=== PATIENT | male | born 1945 | race Caucasian/White ===

== ENCOUNTER → 2019-11-14 | Outpatient (CLI) | payer SELFPAY | PROVIDERS: Family Provider Physician Assistant Medical; Visit Provider Internal Medicine Medical Oncology | DX: C91.10 Chronic lymphocytic leukemia of B-cell type not having achieved remission (principal); K21.9 Gastro-esophageal reflux disease without esophagitis; M19.90 Unspecified osteoarthritis, unspecified site; N40.0 Benign prostatic hyperplasia without lower urinary tract symptoms; Z80.42 Family history of malignant neoplasm of prostate; Z79.899 Other long term (current) drug therapy | CPT/HCPCS: 99214 ==

== ENCOUNTER 2020-05-14 10:12 | Outpatient (CLI) | payer MEDICARE, OTHER, SELFPAY ==
--- NOTE | 2020-05-17 18:36 | ONC FU_ITS ---
Dr. Anthony Patient Follow-Up Note Patient: Angeles Ochoa Unit #: [id number]: 1945 Dicatated By: Claude Anthony M.D.Date of Visit:May 14, 2020 Onc Med Follow-up/Prog Note Chief Complaint: Chronic lymphocytic leukemia. History of Present Illness: This is a 74 year-old man with chronic lymphocytic leukemia, Grey stage III. The leukemia was initially diagnosed by peripheral blood flow cytometry in 2007. At that time he appeared to have early stage disease, and initially he was just monitored with observation. He ultimately did show evidence of significant disease progression with increasing lymphocytosis, peripheral lymphadenopathy, and development of mild anemia. In April 2012 he started treatment with bendamustine/Rituxan. As of July 2012 he had completed four cycles of treatment. Following the fourth cycle, he developed fairly generalized hives. The eruption involved the face and extremities with sparing of the trunk. It resolved following treatment with a Medrol dose pack. He did have a good clinical response to the chemotherapy, and he was subsequently followed on observation. He had been seen by Pilar Ibarra in January 2014 after he developed pain in the low back which radiated into the right leg. It had started abruptly after he had picked up a log and then twisted around at the waist. He was evaluated with MRI which showed a posterior central disc protrusion at L4-L5 causing mild central thecal sac stenosis. There was also a mild disc bulge at L2-L3. The most significant finding on that study was the presence of severe retroperitoneal lymphadenopathy. A subsequent CT of the abdomen/pelvis did show widespread mesenteric and retroperitoneal adenopathy with numerous nodes exceeding 1 cm. There were large soft tissue densities adjacent to the pancreas which were also compatible with adenopathy. The largest measured 7.9 cm x 5.6 cm and was located posterior to the duodenum adjacent to the head of the pancreas. Also noted was a 4.2 cm node just cephalad, adjacent to the head and body of the pancreas, and another just lateral to it measuring 3.4 cm. At that point he was referred to [facility] for further evaluation, as I did feel that a lymph node biopsy was indicated, and there was no peripheral adenopathy accessible for biopsy. He was seen there by Dr. Mariya Fontaine. He underwent CT-guided retroperitoneal lymph node biopsy. 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 He started second line therapy with ibrutinib in March 2014. Initially he had tolerated it well at the standard dosage of 420 mg daily, and he had a very good clinical response. On his followup visit in October 2016 he had reported increasing fatigue and weight gain, and his had reported that he was having some mild cognitive dysfunction. There had been no evidence of disease progression, and at that point I had recommended decreasing the ibrutinib to 280 mg daily. His other medical illnesses include GERD, benign prostatic hypertrophy, and degenerative arthritis. He also has a history of diverticulitis. He underwent TURIS in January 2015. He smoked in the past, but quit more than 30 years ago. Family history is significant for father having of prostate cancer. A younger brother has been treated for prostate cancer. INTERIM HISTORY: He has continued ibrutinib at 280 mg daily, thus far with no evidence of disease progression. He is seen for a scheduled visit. He has been feeling good generally. He says he is scheduled to have cataract surgery tomorrow. His energy has been good and he has normal activity. Appetite also is good. He has no fever or night sweats. He has no shortness of breath, cough, or chest pain. He has no GI or complaints. He has joint pain, mainly in the shoulders. He does not complain of headache or dizziness. He has no focal neurologic symptoms. Medications: Acyclovir 1 (400 mg) Tablet Oral b.i.d., Bactrim DS (800-160 mg) Tablet Oral Take as Directed, Cetirizine HCl 1 (10 mg) Tablet Oral daily, Famotidine 1 (20 mg) Tablet Oral daily, Imbruvica 1 Capsule (of 280 mg) Oral daily, Lisinopril 1 (10 mg) Tablet Oral daily, Meloxicam 1 Tablet (of 15 mg) Oral daily, Mucinex 1 Tablet Tablet SR 12 HR Oral daily, Tylenol 2 (325 mg) Tablet Oral q 4 hours PRN Allergies: No Known Allergies. Review of Systems: Constitutional - He has good energy and he has normal activity. Appetite is good. He has lost weight. No fever, night sweats, or hot flashes. ECOG score is 0, Eyes - He is having cataract surgery tomorrow, ENMT - No sinus congestion/drainage. No mouth sores. No sore throat or difficulty swallowing, Hematologic/Lymphatic - No abnormal bruising or bleeding, Respiratory - No shortness of breath. No cough. No pleuritic pain or hemoptysis, Cardiovascular - No angina pain. No palpitations, Gastrointestinal - No nausea or vomiting. No heartburn or acid reflux. No diarrhea or constipation. No blood in the stool or black stools, Genitourinary (M) - No dysuria or hematuria. No urinary frequency. No urgency or incontinence, Musculoskeletal - He has joint pain, mainly in the shoulders, Integumentary - No skin rash, Neurologic - No headache or dizziness. No numbness or tingling. No other focal neurologic symptoms, Psychiatric - No anxiety or depression. No insomnia. Vital Signs: Performed on May 14, 2020 09:00 Height - 69.00 in Weight - 214 lbs (LOW) BSA - 2.13 sq.m BMI - 31.60 (HIGH) Temperature - 98.5 F Pulse - 51 /min (LOW) Respiration - 16 /min BP - 150/76 mm(hg) (HIGH) O2 Sat - 99 % Pain - 0 Physical Examination: Constitutional - He looks good generally, Eyes - Sclerae nonicteric. Conjunctivae clear, ENMT - There are no lesions noted in the oral cavity, Hematologic/Lymphatic - No cervical, clavicular, or axillary adenopathy, Respiratory - Lungs are clear with good air movement bilaterally, Cardiovascular - Heart rhythm is regular. There is no murmur, gallop, or rub noted, Abdomen - Soft. Liver and spleen are not enlarged. There is no abdominal mass or ascites noted and there is no inguinal adenopathy, Extremities - No edema. There is extensive purpura on both arms, Neurologic - No focal neurologic deficits noted. Lab/Imaging: Test performed on May 02, 2020 11:04 Glucose 100 mg/dL LDH, Total 174 IU/L BUN 20 mg/dL Creatinine 0.86 mg/dL Cr Clearance (Est) 106.43 mL/min Sodium 137 mmol/L Potassium 4.4 mmol/L Chloride 106 mmol/L CO2 23 mmol/L Calcium 9.8 mg/dL Protein, Total 6.5 g/dL Albumin 4.4 g/dL Bilirubin, Total 0.8 mg/dL Alkaline Phosphatase 93 IU/L AST (SGOT) 19 IU/L ALT (SGPT) 24 IU/L WBC 6.2 10^9/L RBC 4.42 10^12/L HGB 13.7 g/dL HCT 40.4 % MCV 91.4 fl MCH 31.0 pg MCHC 33.9 g/dL RDW 12.9 % Platelet Count 152 10^9/L MPV 10.8 fL Neutrophils (Gran) 3.49 10^9/L Lymphocytes 1.77 10^9/L Monocytes 0.80 10^9/L Eosinophils 0.05 10^9/L Basophils 0.06 10^9/L Manual Lymphocytes 29 % Manual Monocytes 13 % Manual Eosinophils 1 % Manual Basophils 1 % PSA 0.6 ng/mL Impression: 1. Patient with chronic lymphocytic leukemia, diagnosed in 2007 and initially managed with observation. 2. He had started treatment in April 2012 because of increasing lymphocytosis in association with peripheral lymphadenopathy and mild anemia. He appeared to have a good clinical response to initial treatment with 4 cycles bendamustine/Rituxan, which he completed in July 2012. The treatment was complicated by a skin eruption which did appear consistent with hives. 3. He had evidence of disease progression with significant adenopathy by CT scan in January 2014, mainly in the area of the joslyn hepatis and pancreas. 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 He started second line therapy with ibrutinib in March 2014 at the standard dosage of 420 mg daily. He had a good response by clinical evaluation and by followup CT scan. 4. As of October 2016 he had reported increased fatigue and weight gain, and he also had mild cognitive dysfunction. There was no indication of disease progression. His ibrutinib dosage at that point was reduced to 280 mg daily. His other medical illnesses include: 5. GERD. 6. Degenerative arthritis. 7. Benign prostatic hypertrophy. 8. He has a significant family history of prostate cancer. He had a very good clinical response to the ibrutinib. He had developed some mild cognitive changes on the ibrutinib and he also reported some musculoskeletal pain, which I had assumed to be treatment related. He has tolerated it better since reducing the dosage to 280 mg daily, overall, he appears to be doing well clinically. Thus far there is been no evidence of progression of the CLL. Plan: He will continue ibrutinib at 280 mg daily. He will have a repeat CBC in 3 months and I will see him again in 6 months. Signed By: Claude Anthony M.D. <<Signature on File>>
== END 2020-05-14 10:13 | disposition home or self-care (01) ==
LOC: ONCMED 10:12
PROVIDERS: PCP Physician Assistant Medical; Visit Provider Internal Medicine Medical Oncology
DX: C91.10 Chronic lymphocytic leukemia of B-cell type not having achieved remission (principal); K21.9 Gastro-esophageal reflux disease without esophagitis; M19.90 Unspecified osteoarthritis, unspecified site; N40.0 Benign prostatic hyperplasia without lower urinary tract symptoms; Z80.42 Family history of malignant neoplasm of prostate; Z79.899 Other long term (current) drug therapy
CPT/HCPCS: 99214

== ENCOUNTER 2020-11-12 12:12 | Outpatient (CLI) | payer MEDICARE, OTHER, SELFPAY ==
--- NOTE | 2020-11-13 12:25 | ONC FU_ITS ---
Dr. Anthony Patient Follow-Up Note Patient: Angeles Ochoa Unit #: [id number]: [id number] Dicatated By: Claude Anthony M.D.Date of Visit:Nov 12, 2020 Onc Med Follow-up/Prog Note Chief Complaint: Chronic lymphocytic leukemia. History of Present Illness: This is a 75 year-old man with chronic lymphocytic leukemia, Grey stage III. The leukemia was initially diagnosed by peripheral blood flow cytometry in 2007. At that time he appeared to have early stage disease, and initially he was just monitored with observation. He ultimately did show evidence of significant disease progression with increasing lymphocytosis, peripheral lymphadenopathy, and development of mild anemia. In April 2012 he started treatment with bendamustine/Rituxan. As of July 2012 he had completed four cycles of treatment. Following the fourth cycle, he developed fairly generalized hives. The eruption involved the face and extremities with sparing of the trunk. It resolved following treatment with a Medrol dose pack. He did have a good clinical response to the chemotherapy, and he was subsequently followed on observation. He had been seen by Pilar Ibarra in January 2014 after he developed pain in the low back which radiated into the right leg. It had started abruptly after he had picked up a log and then twisted around at the waist. He was evaluated with MRI which showed a posterior central disc protrusion at L4-L5 causing mild central thecal sac stenosis. There was also a mild disc bulge at L2-L3. The most significant finding on that study was the presence of severe retroperitoneal lymphadenopathy. A subsequent CT of the abdomen/pelvis did show widespread mesenteric and retroperitoneal adenopathy with numerous nodes exceeding 1 cm. There were large soft tissue densities adjacent to the pancreas which were also compatible with adenopathy. The largest measured 7.9 cm x 5.6 cm and was located posterior to the duodenum adjacent to the head of the pancreas. Also noted was a 4.2 cm node just cephalad, adjacent to the head and body of the pancreas, and another just lateral to it measuring 3.4 cm. At that point he was referred to [facility] for further evaluation, as I did feel that a lymph node biopsy was indicated, and there was no peripheral adenopathy accessible for biopsy. He was seen there by Dr. Mariya Fontaine. He underwent CT-guided retroperitoneal lymph node biopsy. 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 He started second line therapy with ibrutinib in March 2014. Initially he had tolerated it well at the standard dosage of 420 mg daily, and he had a very good clinical response. On his followup visit in October 2016 he had reported increasing fatigue and weight gain, and his had reported that he was having some mild cognitive dysfunction. There had been no evidence of disease progression, and at that point I had recommended decreasing the ibrutinib to 280 mg daily. He has since then continued ibrutinib at 280 mg daily, thus far with no evidence of disease progression. His other medical illnesses include GERD, benign prostatic hypertrophy, and degenerative arthritis. He also has a history of diverticulitis. He underwent TURIS in January 2015. He smoked in the past, but quit more than 30 years ago. Family history is significant for father having of prostate cancer. A younger brother has been treated for prostate cancer. INTERIM HISTORY: He is seen for a scheduled visit. He has been feeling good generally. He has good energy and activity tolerance. ECOG score is 0. His appetite is good and his weight is stable. He has no fever or night sweats. He has a little shortness of breath with activity. He does not complain of cough and he has not been having chest pain. He has no GI or complaints. He has some soreness, mainly in the shoulders. It has not been getting any worse. He does not complain of headache or dizziness, and he has no focal neurologic symptoms. He does have easy bruising. He has no other bleeding manifestations. Medications: Acyclovir 1 (400 mg) Tablet Oral b.i.d., Bactrim DS (800-160 mg) Tablet Oral Take as Directed, Cetirizine HCl 1 (10 mg) Tablet Oral daily, Famotidine 1 (20 mg) Tablet Oral daily, Imbruvica 1 Capsule (of 280 mg) Oral daily, Lisinopril 1 (10 mg) Tablet Oral daily, Meloxicam 1 Tablet (of 15 mg) Oral daily, Mucinex 1 Tablet Tablet SR 12 HR Oral daily, Tylenol 2 (325 mg) Tablet Oral q 4 hours PRN Allergies: No Known Allergies. Review of Systems: Constitutional - He has been feeling good generally. His energy is good. He has normal activity. His appetite is good and his weight is stable. No fever or night sweats. ECOG score is 0, ENMT - No sinus congestion/drainage. No mouth sores. No sore throat or difficulty swallowing, Hematologic/Lymphatic - He bruises easily, Respiratory - He has occasional shortness of breath with exertion. No cough. No pleuritic pain or hemoptysis, Cardiovascular - No angina pain. No palpitations, Gastrointestinal - No nausea or vomiting. No heartburn or acid reflux. No diarrhea or constipation. No blood in the stool or black stools, Genitourinary (M) - No dysuria or hematuria. No urinary frequency. No urgency or incontinence, Musculoskeletal - He has occasional joint aches, mainly in his shoulders, Integumentary - No skin complications, Neurologic - No headache or dizziness. No numbness or tingling. No other focal neurologic symptoms, Psychiatric - No anxiety or depression. No insomnia. Vital Signs: Performed on Nov 12, 2020 09:10 Height - 69.00 in Weight - 220 lbs (HIGH) BSA - 2.15 sq.m BMI - 32.49 (HIGH) Temperature - 98.6 F Pulse - 75 /min Respiration - 16 /min BP - 140/76 mm(hg) O2 Sat - 95 % (LOW) Pain - 0 Physical Examination: Constitutional - He looks good generally, Eyes - Sclerae nonicteric. Conjunctivae clear, ENMT - There are no lesions noted in the oral cavity, Hematologic/Lymphatic - No cervical, clavicular, or axillary adenopathy, Respiratory - Lungs are clear with good air movement bilaterally, Cardiovascular - Heart rhythm is regular. There is no murmur, gallop, or rub noted, Abdomen - Soft. Liver and spleen are not enlarged. There is no abdominal mass or ascites noted and there is no inguinal adenopathy, Extremities - No edema. He has some chronic purpura, Neurologic - No focal neurologic deficits noted. Lab/Imaging: Test performed on Nov 08, 2020 10:02 Glucose 121 mg/dL LDH, Total 157 IU/L BUN 22 mg/dL Creatinine 0.97 mg/dL Cr Clearance (Est) 87.56 mL/min Sodium 140 mmol/L Potassium 4.1 mmol/L Chloride 105 mmol/L CO2 27 mmol/L Calcium 9.8 mg/dL Protein, Total 6.8 g/dL Albumin 4.4 g/dL Bilirubin, Total 0.4 mg/dL Alkaline Phosphatase 114 IU/L AST (SGOT) 17 IU/L ALT (SGPT) 21 IU/L WBC 7.1 10^9/L RBC 4.60 10^12/L HGB 13.9 g/dL HCT 43.1 % MCV 93.7 fl MCH 30.2 pg MCHC 32.3 g/dL RDW 12.8 % Platelet Count 165 10^9/L MPV 10.3 fL Neutrophils (Gran) 3.99 10^9/L Lymphocytes 2.12 10^9/L Monocytes 0.87 10^9/L Eosinophils 0.06 10^9/L Basophils 0.05 10^9/L Manual Lymphocytes 30 % Manual Monocytes 12 % Manual Eosinophils 1 % Manual Basophils 1 % Impression: 1. Patient with chronic lymphocytic leukemia, diagnosed in 2007 and initially managed with observation. 2. He had started treatment in April 2012 because of increasing lymphocytosis in association with peripheral lymphadenopathy and mild anemia. He appeared to have a good clinical response to initial treatment with 4 cycles bendamustine/Rituxan, which he completed in July 2012. The treatment was complicated by a skin eruption which did appear consistent with hives. 3. He had evidence of disease progression with significant adenopathy by CT scan in January 2014, mainly in the area of the joslyn hepatis and pancreas. 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 He started second line therapy with ibrutinib in March 2014 at the standard dosage of 420 mg daily. He had a good response by clinical evaluation and by followup CT scan. 4. As of October 2016 he had reported increased fatigue and weight gain, and he also had mild cognitive dysfunction. There was no indication of disease progression. His ibrutinib dosage at that point was reduced to 280 mg daily. His other medical illnesses include: 5. GERD. 6. Degenerative arthritis. 7. Benign prostatic hypertrophy. 8. He has a significant family history of prostate cancer. He had a very good clinical response to the ibrutinib. He had developed some mild cognitive changes on the ibrutinib and he also reported some musculoskeletal pain, which I had assumed to be treatment related. He has tolerated it better since reducing the dosage to 280 mg daily. Overall, he has been doing well clinically. Thus far there has been no evidence of progression of the CLL. Plan: He will continue ibrutinib at 280 mg daily. He will have a repeat CBC in 3 months and I will see him again in 6 months. Signed By: Claude Anthony M.D. <<Signature on File>>
== END 2020-11-12 12:13 | disposition home or self-care (01) ==
LOC: ONCMED 12:13
PROVIDERS: PCP Physician Assistant Medical; Visit Provider Internal Medicine Medical Oncology
DX: C91.10 Chronic lymphocytic leukemia of B-cell type not having achieved remission (principal); G47.33 Obstructive sleep apnea (adult) (pediatric); K21.9 Gastro-esophageal reflux disease without esophagitis; N40.0 Benign prostatic hyperplasia without lower urinary tract symptoms; M19.90 Unspecified osteoarthritis, unspecified site; Z80.42 Family history of malignant neoplasm of prostate; Z79.899 Other long term (current) drug therapy
CPT/HCPCS: 99214; G0463

== ENCOUNTER 2021-05-13 09:00 | Outpatient (CLI) | payer MEDICARE, OTHER, SELFPAY ==
--- NOTE | 2021-05-16 07:03 | ONC FU_ITS ---
Dr. Anthony Patient Follow-Up Note Patient: Angeles Ochoa Unit #: [id number]: 1945 Dicatated By: Claude Anthony M.D.Date of Visit:May 13, 2021 Onc Med Follow-up/Prog Note Chief Complaint: Chronic lymphocytic leukemia. History of Present Illness: This is a 75 year-old man with chronic lymphocytic leukemia, Grey stage III. The leukemia was initially diagnosed by peripheral blood flow cytometry in 2007. At that time he appeared to have early stage disease, and initially he was just monitored with observation. He ultimately did show evidence of significant disease progression with increasing lymphocytosis, peripheral lymphadenopathy, and development of mild anemia. In April 2012 he started treatment with bendamustine/Rituxan. As of July 2012 he had completed four cycles of treatment. Following the fourth cycle, he developed fairly generalized hives. The eruption involved the face and extremities with sparing of the trunk. It resolved following treatment with a Medrol dose pack. He did have a good clinical response to the chemotherapy, and he was subsequently followed on observation. He had been seen by Pilar Ibarra in January 2014 after he developed pain in the low back which radiated into the right leg. It had started abruptly after he had picked up a log and then twisted around at the waist. He was evaluated with MRI which showed a posterior central disc protrusion at L4-L5 causing mild central thecal sac stenosis. There was also a mild disc bulge at L2-L3. The most significant finding on that study was the presence of severe retroperitoneal lymphadenopathy. A subsequent CT of the abdomen/pelvis did show widespread mesenteric and retroperitoneal adenopathy with numerous nodes exceeding 1 cm. There were large soft tissue densities adjacent to the pancreas which were also compatible with adenopathy. The largest measured 7.9 cm x 5.6 cm and was located posterior to the duodenum adjacent to the head of the pancreas. Also noted was a 4.2 cm node just cephalad, adjacent to the head and body of the pancreas, and another just lateral to it measuring 3.4 cm. At that point he was referred to [facility] for further evaluation, as I did feel that a lymph node biopsy was indicated, and there was no peripheral adenopathy accessible for biopsy. He was seen there by Dr. Mariya Fontaine. He underwent CT-guided retroperitoneal lymph node biopsy. 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 He started second line therapy with ibrutinib in March 2014. Initially he had tolerated it well at the standard dosage of 420 mg daily, and he had a very good clinical response. On his followup visit in October 2016 he had reported increasing fatigue and weight gain, and his had reported that he was having some mild cognitive dysfunction. There had been no evidence of disease progression, and at that point I had recommended decreasing the ibrutinib to 280 mg daily. He has since then continued ibrutinib at 280 mg daily, thus far with no evidence of disease progression. His other medical illnesses include GERD, benign prostatic hypertrophy, and degenerative arthritis. He also has a history of diverticulitis. He underwent TURIS in January 2015. He smoked in the past, but quit more than 30 years ago. Family history is significant for father having of prostate cancer. A younger brother has been treated for prostate cancer. INTERIM HISTORY: He is seen for a scheduled visit. He has been feeling good generally. He continues to have good energy and activity tolerance. ECOG score is 0. Appetite is good. He has no fever or night sweats. He has some allergy related sinus symptoms with occasional hacking cough in the morning. He has no shortness of breath or chest pain. He recently had some heartburn which lasted 2 or 3 days. He has no other GI or complaints. He has some mild joint pain, mainly in the shoulders. He does not complain of headache or dizziness. He has no focal neurologic symptoms. He continues to have some mild bruising, but no other bleeding manifestations. Medications: Acyclovir 1 (400 mg) Tablet Oral b.i.d., Bactrim DS (800-160 mg) Tablet Oral Take as Directed, Cetirizine HCl 1 (10 mg) Tablet Oral daily, Famotidine 1 (20 mg) Tablet Oral daily, Imbruvica 1 Capsule (of 280 mg) Oral daily, Lisinopril 1 (10 mg) Tablet Oral daily, Meloxicam 1 Tablet (of 15 mg) Oral daily, Mucinex 1 Tablet Tablet SR 12 HR Oral daily, Tylenol 2 (325 mg) Tablet Oral q 4 hours PRN Allergies: No Known Allergies. Vital Signs: Performed on May 13, 2021 09:12 Height - 69.00 in Weight - 225 lbs (HIGH) BSA - 2.17 sq.m BMI - 33.23 (HIGH) Temperature - 97.5 F (LOW) Pulse - 72 /min Respiration - 18 /min BP - 140/80 mm(hg) O2 Sat - 95 % (LOW) Pain - 0 Physical Examination: Constitutional - He looks good generally, Eyes - Sclerae nonicteric. Conjunctivae clear, ENMT - No lesions noted in the oral cavity, Hematologic/Lymphatic - No cervical, clavicular, or axillary adenopathy, Respiratory - Lungs are clear with good air movement bilaterally, Cardiovascular - Heart rhythm is regular. There is no murmur, gallop, or rub noted, Abdomen - Soft. Liver and spleen are not enlarged. There is no abdominal mass or ascites noted and there is no inguinal adenopathy, Extremities - No edema. He has a few scattered purpuric lesions on the arms, Neurologic - No focal neurologic deficits noted. Lab/Imaging: Test performed on May 12, 2021 09:32 Glucose 129 mg/dL BUN 17 mg/dL Creatinine 0.78 mg/dL Cr Clearance (Est) 111.95 mL/min Sodium 139 mmol/L Potassium 4.3 mmol/L Chloride 109 mmol/L CO2 23 mmol/L Calcium 9.0 mg/dL Protein, Total 6.2 g/dL Albumin 3.9 g/dL Bilirubin, Total 0.4 mg/dL Alkaline Phosphatase 110 IU/L AST (SGOT) 16 IU/L ALT (SGPT) 20 IU/L WBC 6.6 10^9/L RBC 4.29 10^12/L HGB 13.1 g/dL HCT 39.7 % MCV 92.5 fl MCH 30.5 pg MCHC 33.0 g/dL RDW 13.2 % Platelet Count 148 10^9/L MPV 10.7 fL Neutrophils (Gran) 3.59 10^9/L Lymphocytes 1.96 10^9/L Monocytes 0.86 10^9/L Eosinophils 0.08 10^9/L Basophils 0.06 10^9/L Manual Lymphocytes 30 % Manual Monocytes 13 % Manual Eosinophils 1 % Manual Basophils 1 % Problem List: 1. Chronic lymphocytic leukemia, diagnosed in 2007 and initially managed with observation. 2. GERD. 3. Degenerative arthritis. 4. Benign prostatic hypertrophy. 5. He has a significant family history of prostate cancer. Problems Addressed with this Encounter and Plan: 1. Patient with chronic lymphocytic leukemia, diagnosed in 2007 and initially managed with observation. He had started treatment in April 2012 because of increasing lymphocytosis in association with peripheral lymphadenopathy and mild anemia. He appeared to have a good clinical response to initial treatment with 4 cycles bendamustine/Rituxan, which he completed in July 2012. The treatment was complicated by a skin eruption which did appear consistent with hives. He had evidence of disease progression with significant adenopathy by CT scan in January 2014, mainly in the area of the joslyn hepatis and pancreas. 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 He started second line therapy with ibrutinib in March 2014 at the standard dosage of 420 mg daily. He had a good response by clinical evaluation and by followup CT scan. As of October 2016 he had reported increased fatigue and weight gain. He also had mild cognitive dysfunction and he was having some musculoskeletal pain. There was no indication of disease progression. His ibrutinib dosage at that point was reduced to 280 mg daily. During subsequent follow-up he has tolerated the ibrutinib well at the reduced dosage. Thus far there has been no evidence of progression of the chronic lymphocytic leukemia. Overall, he has been doing very well clinically. He will continue ibrutinib 280 mg daily. He will have a repeat CBC in 3 months and I will see him again in 6 months. 2. He has a significant family history of prostate cancer. He will continue yearly PSA screening. It will be repeated with his next lab draw. Signed By: Claude Anthony M.D. <<Signature on File>>
== END 2021-05-13 09:01 | disposition home or self-care (01) ==
PROVIDERS: PCP Physician Assistant Medical; Visit Provider Internal Medicine Medical Oncology
DX: C91.10 Chronic lymphocytic leukemia of B-cell type not having achieved remission (principal); K21.9 Gastro-esophageal reflux disease without esophagitis; M19.90 Unspecified osteoarthritis, unspecified site; N40.0 Benign prostatic hyperplasia without lower urinary tract symptoms; Z85.46 Personal history of malignant neoplasm of prostate; Z79.899 Other long term (current) drug therapy; Z92.21 Personal history of antineoplastic chemotherapy
CPT/HCPCS: 99214

== ENCOUNTER → 2021-11-10 09:42 | Outpatient (BNVA) | payer MEDICARE, OTHER, SELFPAY | PROVIDERS: PCP Physician Assistant Medical; Visit Provider Internal Medicine Medical Oncology | DX: C91.10 Chronic lymphocytic leukemia of B-cell type not having achieved remission (principal) | CPT/HCPCS: 80053; 83615; 85025 ==

== ENCOUNTER → 2022-02-17 08:51 | Outpatient (BNVA) | payer MEDICARE, OTHER, SELFPAY | PROVIDERS: PCP Physician Assistant Medical; Visit Provider Internal Medicine Medical Oncology | DX: C91.10 Chronic lymphocytic leukemia of B-cell type not having achieved remission (principal) | CPT/HCPCS: 80053; 83615; 85025; G0103 ==

== ENCOUNTER 2022-02-19 13:46 | Outpatient (CLI) | payer MEDICARE, OTHER, SELFPAY ==
--- NOTE | 2022-02-19 14:26 | ONC FU_ITS ---
Ml Roach Progress Note Patient: Angeles Ochoa Unit #: [id number]: 1945 Dicatated By: Ml Roach N.P.Date of Visit:Feb 19, 2022 Onc MED Follow-up/Prog Note Chief Complaint: Chronic lymphocytic leukemia. History of Present Illness: This is a 75 year-old man with chronic lymphocytic leukemia, Grey stage III. The leukemia was initially diagnosed by peripheral blood flow cytometry in 2007. At that time he appeared to have early stage disease, and initially he was just monitored with observation. He ultimately did show evidence of significant disease progression with increasing lymphocytosis, peripheral lymphadenopathy, and development of mild anemia. In April 2012 he started treatment with bendamustine/Rituxan. As of July 2012 he had completed four cycles of treatment. Following the fourth cycle, he developed fairly generalized hives. The eruption involved the face and extremities with sparing of the trunk. It resolved following treatment with a Medrol dose pack. He did have a good clinical response to the chemotherapy, and he was subsequently followed on observation. He had been seen by Pilar Iabrra in January 2014 after he developed pain in the low back which radiated into the right leg. It had started abruptly after he had picked up a log and then twisted around at the waist. He was evaluated with MRI which showed a posterior central disc protrusion at L4-L5 causing mild central thecal sac stenosis. There was also a mild disc bulge at L2-L3. The most significant finding on that study was the presence of severe retroperitoneal lymphadenopathy. A subsequent CT of the abdomen/pelvis did show widespread mesenteric and retroperitoneal adenopathy with numerous nodes exceeding 1 cm. There were large soft tissue densities adjacent to the pancreas which were also compatible with adenopathy. The largest measured 7.9 cm x 5.6 cm and was located posterior to the duodenum adjacent to the head of the pancreas. Also noted was a 4.2 cm node just cephalad, adjacent to the head and body of the pancreas, and another just lateral to it measuring 3.4 cm. At that point he was referred to [facility] for further evaluation, as I did feel that a lymph node biopsy was indicated, and there was no peripheral adenopathy accessible for biopsy. He was seen there by Dr. Mariya Fontaine. He underwent CT-guided retroperitoneal lymph node biopsy. 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 He started second line therapy with ibrutinib in March 2014. Initially he had tolerated it well at the standard dosage of 420 mg daily, and he had a very good clinical response. On his followup visit in October 2016 he had reported increasing fatigue and weight gain, and his had reported that he was having some mild cognitive dysfunction. There had been no evidence of disease progression, and at that point I had recommended decreasing the ibrutinib to 280 mg daily. He has since then continued ibrutinib at 280 mg daily, thus far with no evidence of disease progression. His other medical illnesses include GERD, benign prostatic hypertrophy, and degenerative arthritis. He also has a history of diverticulitis. He underwent TURIS in January 2015. He smoked in the past, but quit more than 30 years ago. Family history is significant for father having of prostate cancer. A younger brother has been treated for prostate cancer. INTERIM HISTORY: Patient presents today for a follow-up visit. He is feeling well and continues to be very active. He denies weakness or fatigue. His appetite is good. No fever, chills, night sweats. No shortness of breath, cough pain no GI or problems. He has occasional arthritic pain. No numbness or paresthesias. He is tolerating ibrutinib at 280 mg p.o. daily Review Of Symptoms: See above. Past Medical History: Benign prostatic hypertrophy Diverticulitis Gastroesophageal reflux disease Obstructive sleep apnea Osteoarthritis Chronic lymphocytic leukemia in 2007 Past Surgical History: Flu Vaccine in 2015 TURis in 2014 Shoulder repair in 2003 Rhinoplasty in 1969 Allergies: No Known Allergies. Medications: Acyclovir 1 (400 mg) Tablet Oral b.i.d. Bactrim DS (800-160 mg) Tablet Oral Take as Directed Cetirizine HCl 1 (10 mg) Tablet Oral daily Famotidine 1 (20 mg) Tablet Oral daily Imbruvica 1 Capsule (of 280 mg) Oral daily Lisinopril 1 (10 mg) Tablet Oral daily Mucinex 1 Tablet Tablet SR 12 HR Oral daily Tylenol 2 (325 mg) Tablet Oral q 4 hours PRN Family History: Mr. Ochoa's mother at age 95: medical history includes osteoporosis and heart failure. Mr. Ochoa's father at age 86: cancer history consists of Prostate cancer at age 86 (cause of ). Social History: Mr. Ochoa is and he is retired. Mr. Ochoa quit smoking 32 years ago but had smoked for 29 years. He has no history of drinking. Physical Examination: Performed on Feb 19, 2022 14:06: Height - 69.00 in, BP - 137/74 mm(hg), Performed on Feb 19, 2022 14:05: Height - 69.00 in, Weight - 218.6 lbs (LOW), BSA - 2.15 sq.m, BMI - 32.28 (HIGH), Temperature - 97.2 F (LOW), Pulse - 76 /min, Respiration - 18 /min, BP - 161/75 mm(hg) (HIGH), O2 Sat - 95 % (LOW), Pain - 0, and Fatigue - 0. Performance Status: 0 - Fully active, able to carry on all predisease activities without restrictions. (ECOG) Constitutional Alert, cooperative, oriented. Mood and affect appropriate. Appears close to chronological age. Well nourished. Well developed. Head Normocephalic; no scars. Eyes Conjunctivae and sclerae are clear and without icterus. Pupils are reactive and equal. Respiratory Lungs are clear to auscultation without rhonchi or wheezing. Cardiovascular Regular rate and rhythm of heart without murmurs, gallops or rubs. Abdomen Non-tender, non-distended, no masses, ascites or hepatosplenomegaly. Good bowel sounds. No guarding or rebound tenderness. Extremities No edema Musculoskeletal No tenderness or swelling, normal range of motion without obvious weakness. Psychiatric Alert and oriented times three. Coherent speech. Verbalizes understanding of our discussions today. Laboratory: Most recent lab results are not available for this patient. Impression: 1. Chronic lymphocytic leukemia, diagnosed in 2007 and initially managed with observation. 2. GERD. 3. Degenerative arthritis. 4. Benign prostatic hypertrophy. 5. He has a significant family history of prostate cancer. Plan: 1. Patient with chronic lymphocytic leukemia, diagnosed in 2007 and initially managed with observation. He had started treatment in April 2012 because of increasing lymphocytosis in association with peripheral lymphadenopathy and mild anemia. He appeared to have a good clinical response to initial treatment with 4 cycles bendamustine/Rituxan, which he completed in July 2012. The treatment was complicated by a skin eruption which did appear consistent with hives. He had evidence of disease progression with significant adenopathy by CT scan in January 2014, mainly in the area of the joslyn hepatis and pancreas. 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 He started second line therapy with ibrutinib in March 2014 at the standard dosage of 420 mg daily. He had a good response by clinical evaluation and by followup CT scan. As of October 2016 he had reported increased fatigue and weight gain. He also had mild cognitive dysfunction and he was having some musculoskeletal pain. There was no indication of disease progression. His ibrutinib dosage at that point was reduced to 280 mg daily. Patient presents for follow-up today. His labs are all within normal limits. He is tolerating ibrutinib at 280 mg daily. We will continue at same dose. Labs were ordered to be drawn every 3 months and he will have a follow-up appointment in 6 months 2. He has a significant family history of prostate cancer. He will continue yearly PSA screening. Last PSA drawn on 02/17/2022 was 0.75. Signed By: Ml Roach N.P. <<Signature on File>>
== END 2022-02-19 13:47 | disposition home or self-care (01) ==
LOC: ONCMED 13:49
PROVIDERS: Visit Provider Internal Medicine Medical Oncology
DX: C91.10 Chronic lymphocytic leukemia of B-cell type not having achieved remission (principal); K21.9 Gastro-esophageal reflux disease without esophagitis; M19.90 Unspecified osteoarthritis, unspecified site; N40.0 Benign prostatic hyperplasia without lower urinary tract symptoms; Z80.42 Family history of malignant neoplasm of prostate; Z79.899 Other long term (current) drug therapy; Z92.21 Personal history of antineoplastic chemotherapy; Z92.25 Personal history of immunosuppression therapy
CPT/HCPCS: 99214

== ENCOUNTER → 2022-05-20 10:29 | Outpatient (BNVA) | payer MEDICARE, OTHER, SELFPAY | PROVIDERS: Visit Provider Internal Medicine Medical Oncology | DX: C91.10 Chronic lymphocytic leukemia of B-cell type not having achieved remission (principal); G47.33 Obstructive sleep apnea (adult) (pediatric); K21.9 Gastro-esophageal reflux disease without esophagitis; M15.9 Polyosteoarthritis, unspecified; N40.0 Benign prostatic hyperplasia without lower urinary tract symptoms | CPT/HCPCS: 80053; 83615; 85025 ==

== ENCOUNTER → 2022-08-18 09:38 | Outpatient (BNVA) | payer MEDICARE, OTHER, SELFPAY | PROVIDERS: PCP Internal Medicine Medical Oncology; Visit Provider Internal Medicine Medical Oncology | DX: C91.10 Chronic lymphocytic leukemia of B-cell type not having achieved remission (principal); G47.33 Obstructive sleep apnea (adult) (pediatric); K21.9 Gastro-esophageal reflux disease without esophagitis; M19.90 Unspecified osteoarthritis, unspecified site; N40.0 Benign prostatic hyperplasia without lower urinary tract symptoms | CPT/HCPCS: 80053; 83615; 85025 ==

== ENCOUNTER 2022-09-15 15:06 | Oncology outpatient (recurring) (ONCR) | payer MEDICARE, OTHER, SELFPAY | END 2022-09-28 23:59 | disposition home or self-care (01) | PROVIDERS: Visit Provider Internal Medicine Medical Oncology | DX: C91.10 Chronic lymphocytic leukemia of B-cell type not having achieved remission (principal); Z79.899 Other long term (current) drug therapy; Z87.891 Personal history of nicotine dependence; Z92.21 Personal history of antineoplastic chemotherapy; Z92.25 Personal history of immunosuppression therapy | CPT/HCPCS: 99213; 99214 ==

== ENCOUNTER → 2022-12-15 09:25 | Outpatient (BNVA) | payer MEDICARE, OTHER, SELFPAY | PROVIDERS: PCP Nurse Practitioner Family; Visit Provider Nurse Practitioner Family | DX: E78.5 Hyperlipidemia, unspecified (principal); Z79.899 Other long term (current) drug therapy | CPT/HCPCS: 80053; 80061; 85025 ==

== ENCOUNTER → 2022-12-30 09:47 | Outpatient (BNVA) | payer MEDICARE, OTHER, SELFPAY | PROVIDERS: PCP Nurse Practitioner Family; Visit Provider Podiatrist Foot & Ankle Surgery | DX: B35.1 Tinea unguium (principal) | CPT/HCPCS: 99203 ==

== ENCOUNTER → 2023-03-18 08:47 | Outpatient (BNVA) | payer MEDICARE, OTHER, SELFPAY | PROVIDERS: PCP Nurse Practitioner Family; Visit Provider Neurological Surgery | DX: C91.10 Chronic lymphocytic leukemia of B-cell type not having achieved remission (principal) | CPT/HCPCS: 80053; 83615; 85025 ==

== ENCOUNTER 2023-03-23 13:54 | Oncology outpatient (recurring) (ONCR) | payer MEDICARE, OTHER, SELFPAY | END 2023-03-28 23:59 | disposition home or self-care (01) | LOC: ONCMED 13:54 | PROVIDERS: PCP Nurse Practitioner Family; Visit Provider Internal Medicine Medical Oncology | DX: C91.10 Chronic lymphocytic leukemia of B-cell type not having achieved remission (principal); Z79.899 Other long term (current) drug therapy; Z87.891 Personal history of nicotine dependence; Z92.21 Personal history of antineoplastic chemotherapy; Z92.25 Personal history of immunosuppression therapy | CPT/HCPCS: 99214 ==

== ENCOUNTER → 2023-05-19 08:51 | Outpatient (BNVA) | payer MEDICARE, OTHER, SELFPAY | PROVIDERS: PCP Nurse Practitioner Family; Visit Provider Nurse Practitioner Family | DX: L85.3 Xerosis cutis (principal); D22.5 Melanocytic nevi of trunk; L81.4 Other melanin hyperpigmentation; L82.1 Other seborrheic keratosis; L57.8 Other skin changes due to chronic exposure to nonionizing radiation; L56.8 Other specified acute skin changes due to ultraviolet radiation; L57.0 Actinic keratosis; S20.461A Insect bite (nonvenomous) of right back wall of thorax, initial encounter; S20.462A Insect bite (nonvenomous) of left back wall of thorax, initial encounter; W57.XXXA Bitten or stung by nonvenomous insect and other nonvenomous arthropods, initial encounter; Z12.83 Encounter for screening for malignant neoplasm of skin | CPT/HCPCS: 10120; 17004; 99214 ==

== ENCOUNTER → 2023-05-26 10:45 | Outpatient (BNVA) | payer MEDICARE, OTHER, SELFPAY | PROVIDERS: PCP Nurse Practitioner Family; Visit Provider Nurse Practitioner Family | DX: I10 Essential (primary) hypertension (principal); M25.50 Pain in unspecified joint; R50.9 Fever, unspecified; W57.XXXA Bitten or stung by nonvenomous insect and other nonvenomous arthropods, initial encounter | CPT/HCPCS: 80053; 85025; 86140; 86618; 86666; 86757 ==

== ENCOUNTER → 2023-06-22 08:19 | Outpatient (BNVA) | payer MEDICARE, OTHER, SELFPAY | PROVIDERS: PCP Nurse Practitioner Family; Visit Provider Internal Medicine Medical Oncology | DX: C91.10 Chronic lymphocytic leukemia of B-cell type not having achieved remission (principal) | CPT/HCPCS: 80053; 83615; 85025 ==

== ENCOUNTER → 2023-08-18 08:44 | Outpatient (BNVA) | payer MEDICARE, OTHER, SELFPAY | PROVIDERS: PCP Nurse Practitioner Family; Visit Provider Nurse Practitioner Family | DX: S00.00XA Unspecified superficial injury of scalp, initial encounter (principal); L81.4 Other melanin hyperpigmentation; L57.8 Other skin changes due to chronic exposure to nonionizing radiation; Z85.828 Personal history of other malignant neoplasm of skin; Z87.891 Personal history of nicotine dependence; L57.0 Actinic keratosis; X58.XXXA Exposure to other specified factors, initial encounter; Y93.9 Activity, unspecified; Y92.9 Unspecified place or not applicable; Y99.9 Unspecified external cause status | CPT/HCPCS: 17004; 99214 ==

== ENCOUNTER → 2023-09-21 08:44 | Outpatient (BNVA) | payer MEDICARE, OTHER, SELFPAY | PROVIDERS: PCP Nurse Practitioner Family; Visit Provider Internal Medicine Medical Oncology | DX: C91.10 Chronic lymphocytic leukemia of B-cell type not having achieved remission (principal) | CPT/HCPCS: 80053; 83615; 85025 ==

== ENCOUNTER 2023-09-27 13:24 | Oncology outpatient (recurring) (ONCR) | payer MEDICARE, OTHER, SELFPAY | END 2023-09-28 23:59 | disposition home or self-care (01) | PROVIDERS: PCP Nurse Practitioner Family; Visit Provider Internal Medicine Medical Oncology | DX: C91.10 Chronic lymphocytic leukemia of B-cell type not having achieved remission (principal); Z79.899 Other long term (current) drug therapy; Z87.891 Personal history of nicotine dependence; Z92.21 Personal history of antineoplastic chemotherapy; Z92.25 Personal history of immunosuppression therapy | CPT/HCPCS: 80053; 83615; 85025; 99214 ==

== ENCOUNTER → 2023-11-09 08:53 | Outpatient (BNVA) | payer MEDICARE, OTHER, SELFPAY | PROVIDERS: PCP Nurse Practitioner Family; Visit Provider Nurse Practitioner Family | DX: Z85.828 Personal history of other malignant neoplasm of skin (principal); D22.62 Melanocytic nevi of left upper limb, including shoulder; L81.4 Other melanin hyperpigmentation; L57.8 Other skin changes due to chronic exposure to nonionizing radiation; L57.0 Actinic keratosis | CPT/HCPCS: 17000; 99213 ==

== ENCOUNTER → 2023-12-21 08:51 | Outpatient (BNVA) | payer MEDICARE, OTHER, SELFPAY | PROVIDERS: PCP Nurse Practitioner Family; Visit Provider Internal Medicine Medical Oncology | DX: C91.10 Chronic lymphocytic leukemia of B-cell type not having achieved remission (principal) | CPT/HCPCS: 85025 ==

== ENCOUNTER → 2023-12-30 13:30 | Outpatient (BNVA) | payer MEDICARE, OTHER, SELFPAY | PROVIDERS: PCP Nurse Practitioner Family; Visit Provider Nurse Practitioner Family | DX: Z85.828 Personal history of other malignant neoplasm of skin (principal); D22.62 Melanocytic nevi of left upper limb, including shoulder; L81.4 Other melanin hyperpigmentation; L57.8 Other skin changes due to chronic exposure to nonionizing radiation; L57.0 Actinic keratosis | CPT/HCPCS: 17000; 99213 ==

== ENCOUNTER → 2024-02-17 10:33 | Outpatient (BNVA) | payer MEDICARE, OTHER, SELFPAY | PROVIDERS: PCP Nurse Practitioner Family; Visit Provider Nurse Practitioner Family | DX: M25.561 Pain in right knee (principal); M25.562 Pain in left knee; G89.29 Other chronic pain | CPT/HCPCS: 84550 ==

== ENCOUNTER 2024-02-18 10:26 | Outpatient (CLI) | payer MEDICARE, OTHER, SELFPAY ==
--- NOTE | 2024-02-18 10:34 | XR_ITS ---
WS: [id number] Right knee, 3 views, 02/18/2024 Clinical Data: M25.561 - Pain in right knee Comparison: None. Findings: No fractures or dislocations are seen. There is medial and lateral joint space narrowing. There are s purs of the medial femoral condyle and medial tibial plateau. The posterior patella shows minimal spu rs. There are no fractures or dislocations. The soft tissues are normal. Normal. The patella is intac t. The soft tissues are unremarkable. Impression: Minimal osteoarthritis of the right knee. Kellgren-Moncho Classification: grade 2 (minimal): definite osteophytes and possible joint space na rrowing
--- NOTE | 2024-02-18 10:34 | XR_ITS ---
WS: [id number] Left knee, 3 views, 02/18/2024 Clinical Data: M25.561 - Pain in left knee Comparison: None. Findings: No fractures or dislocations are seen. There is medial and lateral joint space narrowing. There are s purs of the medial femoral condyle and medial tibial plateau. There is a spur of the lateral femoral condyle. There is minimal spurring of the posterior left patella. There are no fractures or dislocati ons. The soft tissues are normal.. Impression: Moderate osteoarthritis of the left knee Kellgren-Moncho Classification: grade 3 (moderate): moderate multiple osteophytes, definite narrowi ng of joint space and some sclerosis and possible deformity of bone ends
== END 2024-02-18 10:27 | disposition home or self-care (01) ==
LOC: RAD 10:28
PROVIDERS: PCP Nurse Practitioner Family; Visit Provider Nurse Practitioner Family
DX: M17.0 Bilateral primary osteoarthritis of knee (principal); M25.561 Pain in right knee; M25.562 Pain in left knee
CPT/HCPCS: 73562

== ENCOUNTER → 2024-03-20 09:32 | Outpatient (BNVA) | payer MEDICARE, OTHER, SELFPAY | PROVIDERS: PCP Nurse Practitioner Family; Visit Provider Nurse Practitioner Family | DX: I10 Essential (primary) hypertension (principal); C91.10 Chronic lymphocytic leukemia of B-cell type not having achieved remission; S83.204D Other tear of unspecified meniscus, current injury, left knee, subsequent encounter | CPT/HCPCS: 80053; 80061; 83615; 85025 ==

== ENCOUNTER 2024-03-22 13:59 | Oncology outpatient (recurring) (ONCR) | payer MEDICARE, OTHER, SELFPAY | END 2024-03-28 23:59 | disposition home or self-care (01) | PROVIDERS: PCP Nurse Practitioner Family; Visit Provider Internal Medicine Medical Oncology | DX: C91.10 Chronic lymphocytic leukemia of B-cell type not having achieved remission (principal) | CPT/HCPCS: 99214 ==

== ENCOUNTER → 2024-05-01 08:20 | Outpatient (BNVA) | payer MEDICARE, OTHER, SELFPAY | PROVIDERS: PCP Nurse Practitioner Family; Visit Provider Nurse Practitioner Family | DX: D48.5 Neoplasm of uncertain behavior of skin (principal); Z85.828 Personal history of other malignant neoplasm of skin; D22.62 Melanocytic nevi of left upper limb, including shoulder; L81.4 Other melanin hyperpigmentation | CPT/HCPCS: 10120; 11102; 17000; 99214 ==

== ENCOUNTER → 2024-06-06 10:48 | Outpatient (BNVA) | payer MEDICARE, OTHER, SELFPAY | PROVIDERS: PCP Nurse Practitioner Family; Visit Provider Dermatology | DX: D04.4 Carcinoma in situ of skin of scalp and neck (principal); D04.62 Carcinoma in situ of skin of left upper limb, including shoulder; L57.0 Actinic keratosis; L82.1 Other seborrheic keratosis | CPT/HCPCS: 17262; 17271; 99213 ==

== ENCOUNTER → 2024-06-20 09:28 | Outpatient (BNVA) | payer MEDICARE, OTHER, SELFPAY | PROVIDERS: PCP Nurse Practitioner Family; Visit Provider Nurse Practitioner Family | DX: C91.10 Chronic lymphocytic leukemia of B-cell type not having achieved remission (principal) | CPT/HCPCS: 80053; 83615; 85025 ==

== ENCOUNTER → 2024-09-18 08:53 | Outpatient (BNVA) | payer MEDICARE, OTHER, SELFPAY | PROVIDERS: PCP Nurse Practitioner Family; Visit Provider Nurse Practitioner Family | DX: C91.10 Chronic lymphocytic leukemia of B-cell type not having achieved remission (principal) | CPT/HCPCS: 80053; 83615; 85025 ==

== ENCOUNTER 2024-09-22 09:15 | Oncology outpatient (recurring) (ONCR) | payer MEDICARE, OTHER, SELFPAY | END 2024-09-28 23:59 | disposition home or self-care (01) | LOC: ONCMED 09:16 | PROVIDERS: PCP Nurse Practitioner Family; Visit Provider Internal Medicine Hematology & Oncology | DX: C91.10 Chronic lymphocytic leukemia of B-cell type not having achieved remission (principal); Z79.899 Other long term (current) drug therapy; Z87.891 Personal history of nicotine dependence; Z92.21 Personal history of antineoplastic chemotherapy; Z92.25 Personal history of immunosuppression therapy | CPT/HCPCS: 99214 ==

== ENCOUNTER → 2024-12-19 09:28 | Outpatient (BNVA) | payer MEDICARE, OTHER, SELFPAY | PROVIDERS: PCP Nurse Practitioner Family; Visit Provider Nurse Practitioner Family | DX: C91.10 Chronic lymphocytic leukemia of B-cell type not having achieved remission (principal); I10 Essential (primary) hypertension | CPT/HCPCS: 80053; 83615; 85025 ==

== ENCOUNTER 2024-12-21 11:04 | Oncology outpatient (recurring) (ONCR) | payer MEDICARE, OTHER, SELFPAY | END 2024-12-29 23:59 | disposition home or self-care (01) | LOC: ONCMED 11:04 | PROVIDERS: PCP Nurse Practitioner Family; Visit Provider Internal Medicine Hematology & Oncology | DX: C91.10 Chronic lymphocytic leukemia of B-cell type not having achieved remission (principal); Z87.891 Personal history of nicotine dependence; Z79.899 Other long term (current) drug therapy; Z86.007 Personal history of in-situ neoplasm of skin; L57.0 Actinic keratosis; L82.1 Other seborrheic keratosis | CPT/HCPCS: 17000; 99213 ==

== ENCOUNTER → 2025-03-19 09:06 | Outpatient (BNVA) | payer MEDICARE, OTHER, SELFPAY | PROVIDERS: PCP Nurse Practitioner Family; Visit Provider Internal Medicine | DX: C91.10 Chronic lymphocytic leukemia of B-cell type not having achieved remission (principal) | CPT/HCPCS: 80053; 82784; 83615; 84100; 84155; 84165; 84550; 85025; 85651; 86334 ==

== ENCOUNTER 2025-03-21 14:32 | Oncology outpatient (recurring) (ONCR) | payer MEDICARE, OTHER, SELFPAY | END 2025-03-28 23:59 | disposition home or self-care (01) | LOC: ONCMED 14:32 | PROVIDERS: PCP Nurse Practitioner Family; Visit Provider Internal Medicine Hematology & Oncology | DX: C91.10 Chronic lymphocytic leukemia of B-cell type not having achieved remission (principal); R03.0 Elevated blood-pressure reading, without diagnosis of hypertension; Z87.891 Personal history of nicotine dependence; Z79.899 Other long term (current) drug therapy; Z92.21 Personal history of antineoplastic chemotherapy | CPT/HCPCS: 99213 ==

== ENCOUNTER → 2025-05-30 12:05 | Outpatient (BNVA) | payer MEDICARE, OTHER, SELFPAY | PROVIDERS: PCP Nurse Practitioner Family; Visit Provider Nurse Practitioner Family | DX: T14.8XXA Other injury of unspecified body region, initial encounter (principal); W57.XXXA Bitten or stung by nonvenomous insect and other nonvenomous arthropods, initial encounter; R50.9 Fever, unspecified | CPT/HCPCS: 81000; 86618; 86666; 86757; 87086 ==

== ENCOUNTER → 2025-06-18 09:00 | Outpatient (BNVA) | payer MEDICARE, OTHER, SELFPAY | PROVIDERS: PCP Nurse Practitioner Family; Visit Provider Nurse Practitioner Family | DX: C91.10 Chronic lymphocytic leukemia of B-cell type not having achieved remission (principal) | CPT/HCPCS: 80053; 82784; 83615; 84100; 84155; 84165; 85025; 85651; 86334 ==

== ENCOUNTER 2025-06-21 14:58 | Oncology outpatient (recurring) (ONCR) | payer MEDICARE, OTHER, SELFPAY | END 2025-06-28 23:59 | disposition home or self-care (01) | LOC: ONCMED 14:59 | PROVIDERS: PCP Nurse Practitioner Family; Visit Provider Internal Medicine Hematology & Oncology | DX: C91.10 Chronic lymphocytic leukemia of B-cell type not having achieved remission (principal); R03.0 Elevated blood-pressure reading, without diagnosis of hypertension; I48.91 Unspecified atrial fibrillation; A93.8 Other specified arthropod-borne viral fevers; Z87.891 Personal history of nicotine dependence; Z79.899 Other long term (current) drug therapy; Z86.007 Personal history of in-situ neoplasm of skin; L82.0 Inflamed seborrheic keratosis; L57.8 Other skin changes due to chronic exposure to nonionizing radiation; L81.4 Other melanin hyperpigmentation; D22.62 Melanocytic nevi of left upper limb, including shoulder; L57.0 Actinic keratosis | CPT/HCPCS: 17000; 17110; 99213; 99214 ==

== ENCOUNTER → 2025-09-17 16:26 | Outpatient (BNVA) | payer MEDICARE, OTHER, SELFPAY | PROVIDERS: PCP Nurse Practitioner Family; Visit Provider Nurse Practitioner Family | DX: C91.10 Chronic lymphocytic leukemia of B-cell type not having achieved remission (principal) | CPT/HCPCS: 80053; 82784; 83615; 83883; 84155; 84165; 85025; 86334 ==

== ENCOUNTER 2025-09-20 13:04 | Oncology outpatient (recurring) (ONCR) | payer MEDICARE, OTHER, SELFPAY | END 2025-09-28 23:59 | disposition home or self-care (01) | LOC: ONCMED 13:05 | PROVIDERS: PCP Nurse Practitioner Family; Visit Provider Nurse Practitioner Family | DX: C91.10 Chronic lymphocytic leukemia of B-cell type not having achieved remission (principal); R03.0 Elevated blood-pressure reading, without diagnosis of hypertension; Z87.891 Personal history of nicotine dependence; Z79.899 Other long term (current) drug therapy | CPT/HCPCS: 99214 ==

== ENCOUNTER 2025-10-23 08:55 | Oncology outpatient (recurring) (ONCR) | payer MEDICARE, OTHER, SELFPAY ==
[2025-10-23 09:20] LABS: Hematocrit 37.5 % (37-53); Hemoglobin 12.50 g/dL (11.27-16.99); Mean Corpuscular HGB Conc 33.3 g/dL (30-55); Mean Corpuscular Hemoglobin 33.2 pg (27-33); Mean Corpuscular Volume 99.7 fl (82-101); Nucleated Red Blood Cells % 0 %; Platelet Count 164 10^3/cmm (157-399); Red Blood Count 3.76 10^6/uL (3.85-5.65); White Blood Count 18.25 10^3/uL (3.29-11.43)
[2025-10-23 10:00] LABS: Alanine Aminotransferase 17 U/L (0-41); Albumin Level 4.1 g/dL (3.5-5.2); Alkaline Phosphatase 113 U/L (40-130); Anion Gap 14.5 (5-19); Aspartate Amino Transferase 17 U/L (0-40); Blood Urea Nitrogen 12 mg/dL (8-23); Calcium 9.0 mg/dL (8.5-10.5); Carbon Dioxide 22 mmol/L (22-29); Chloride 107 mmol/L (98-107); Globulin 2.3 g/dL (1.3-4.6); Glucose 102 mg/dL (65-115); Osmolality Calculated 288 mOsm/kg (285-295); Potassium 4.5 mmol/L (3.5-5.1); Sodium 139 mmol/L (136-145); Total Protein 6.4 g/dL (6.6-8.7)
== END 2025-10-28 23:59 | disposition home or self-care (01) ==
PROVIDERS: Nurse Practitioner Family; PCP Nurse Practitioner Family; Visit Provider Internal Medicine Medical Oncology
DX: C91.10 Chronic lymphocytic leukemia of B-cell type not having achieved remission (principal); Z87.891 Personal history of nicotine dependence; R03.0 Elevated blood-pressure reading, without diagnosis of hypertension; Z79.899 Other long term (current) drug therapy
CPT/HCPCS: 36415; 80053; 83615; 85025; 99214

== ENCOUNTER 2025-11-20 09:30 | Oncology outpatient (recurring) (ONCR) | payer MEDICARE, OTHER, SELFPAY ==
--- NOTE | 2025-11-12 09:30 | CT_ITS ---
WS: [id number] CT CHEST, ABDOMEN, AND PELVIS TECHNIQUE: Contrast-enhanced CT of the chest, abdomen, and pelvis with coronal and sagittal reformatted images. CLINICAL INFORMATION: CLL COMPARISON: 2013 DLP: 1171.[address] scans at [facility] use at least one of these dose optimization techniques: automated exposure control; mA and/or kV adjustment per patient size (includes targeted exams where dose is matched to clinical indication); or iterative reconstruction. CT CHEST: Moderate chronic emphysematous changes. A few tiny scattered micronodules and subcentimeter nodules. No suspicious pulmonary parenchymal opacities. Subsegmental atelectasis in the lung bases. Aortic calcification. Normal caliber thoracic aorta. Coronary calcification. LEFT thyroid nodule measuring 10 mm. Few normal size mediastinal and peribronchial lymph nodes. Few enlarged LEFT greater than RIGHT axillary lymph nodes measuring up to 1.5 cm. Hypertrophic changes thoracic spine. Mild thoracic kyphosis. CT ABDOMEN AND PELVIS: Diffuse fatty infiltration of the liver. Mild hepatomegaly. Normal spleen. Small esophageal hiatal hernia. Adrenal glands are normal. Bilateral peripelvic renal cysts. Large RIGHT renal cyst measuring 8.7 x 9.7 cm. Smaller LEFT renal cyst. Normal portal vein and splenic vein. Enlarged joslyn hepatis and peripancreatic lymph nodes measuring up to 2 cm. Enlarged lymph nodes in the central mesentery. Bulky lymphadenopathy LEFT periaortic measuring up to 2.8 cm. Retroperitoneal lymphadenopathy. Enlarged RIGHT greater than LEFT common iliac lymph nodes. Enlarged lymph nodes along the pelvic sidewall. These measure up to 2.5 cm. Enlarged perirectal lymph node measuring 10 mm. Celiac and SMA are patent. Normal caliber abdominal aorta. Small cystocele. Moderate spondylitic changes lumbar spine. CT/CT chest abdpel w/*[id number] IMPRESSION: 1. Bulky lymphadenopathy in the abdomen and pelvis described above suspicious for progressive or recurrent disease. 2. Hepatomegaly with fatty infiltration of the liver. 3. Large RIGHT renal cyst. 4. Mild LEFT greater than RIGHT axillary lymphadenopathy. 5. A few tiny pulmonary nodules likely incidental.
[2025-11-12] MEDS: iohexol 350 mg/mL 500 mL Btl (per mL) PO (09:53)
[2025-11-12] MEDS: iohexol 350 mg/mL 500 mL Btl (per mL) IV (09:53)
[2025-11-20 10:19] LABS: Hematocrit 36.2 % (37-53); Hemoglobin 11.90 g/dL (11.27-16.99); Mean Corpuscular HGB Conc 32.9 g/dL (30-55); Mean Corpuscular Hemoglobin 33.4 pg (27-33); Mean Corpuscular Volume 101.7 fl (82-101); Nucleated Red Blood Cells % 0 %; Platelet Count 142 10^3/cmm (157-399); Red Blood Count 3.56 10^6/uL (3.85-5.65); White Blood Count 17.54 10^3/uL (3.29-11.43)
== END 2025-11-28 23:59 | disposition home or self-care (01) ==
PROVIDERS: PCP Nurse Practitioner Family; Visit Provider Internal Medicine Medical Oncology
DX: Z53.9 Procedure and treatment not carried out, unspecified reason; C91.10 Chronic lymphocytic leukemia of B-cell type not having achieved remission; R03.0 Elevated blood-pressure reading, without diagnosis of hypertension; R59.0 Localized enlarged lymph nodes; I48.91 Unspecified atrial fibrillation; Z87.891 Personal history of nicotine dependence; Z79.899 Other long term (current) drug therapy
CPT/HCPCS: 36415; 71260; 74177; 85025; 99214